=== PATIENT | male | born 1970 | race African-American/Black ===

== ENCOUNTER 2024-10-09 14:09 | Emergency (ER) | payer OTHER ==
[~2024-10-09] VITALS: Ht 188 cm; Wt 84.0 kg
[~2024-10-09 14:09] MED LIST: ATOR40TA70 PO
[2024-10-09 14:11] VITALS: TEMP 36.5; O2SAT 100
[2024-10-09 17:14] VITALS: BP 120/89; PULSE 80; RESP 16; O2SAT 99
== END 2024-10-09 17:15 | disposition home or self-care (01) ==
LOC: ER 14:09
DX: R53.1 Weakness (principal); E78.00 Pure hypercholesterolemia, unspecified
CPT/HCPCS: 82962; 93005; 99283